=== PATIENT | female | born 1950 | race Hispanic/Latino ===

== ENCOUNTER 2021-08-30 07:30 | Observation (INO) | payer MEDICARE ==
[2021-08-25 15:45] LABS: BASOPHILS % (AUTO) 0.7 % (0.0-5.0); EOSINOPHILS % (AUTO) 1.2 % (0.0-8.0); HEMATOCRIT 42.9 % (36-48); LYMPHOCYTES % (AUTO) 25.2 % (21.0-51.0); MEAN CORPUSCULAR HEMOGLOBIN 30.9 pg (27.0-33.0); MEAN CORPUSCULAR HGB CONC 32.9 g/dL (32.0-36.0); MEAN CORPUSCULAR VOLUME 93.9 fL (79-99); MONOCYTES % (AUTO) 8.8 % (3.0-13.0); NEUTROPHILS % (AUTO) 63.6 % (40.0-77.0); PLATELET COUNT (AUTO) 253 K/uL (130-400); RED BLOOD CELL COUNT(AUTO) 4.57 MIL/uL (4.00-5.50); RED CELL DISTRIBUTION WIDTH 13.7 % (11.0-15.5); WHITE BLOOD COUNT (AUTO) 7.7 K/uL (4.8-10.8)
[2021-08-25 15:55] LABS: CREATININE 0.9 mg/dL (0.5-1.5); INR 1.05 (0.85-1.15); POTASSIUM 3.7 mmol/L (3.5-5.1); PROTHROMBIN TIME 11.4 SEC (9.6-11.6)
[2021-08-25 15:56] LABS: PARTIAL THROMBOPLASTIN TIME 26.6 SEC (26.3-35.5)
[2021-08-29 13:11] VITALS: BP 171/64
[2021-08-30] VITALS (26 sets, daily range): BP systolic 111–159; BP diastolic 50–77
[~2021-08-30] VITALS: Ht 152.4 cm; Wt 70.8 kg
[~2021-08-30 07:30] MED LIST: AZEL23SP2 NS; FISH1CAP63 PO; FLUT1BLS IH; FURO20TA4 PO; GABA300C PO; INSU300I SQ; IPRA21SP NS; LABE100T5 PO; LANS30CA55 PO; LEVO5TAB13 PO; LIRA0.6P SQ; MONT-39 PO; MULT-1258 PO; POTASSIUM PO; PRED10TA3 PO; QUIN1TAB16 PO; SIMV10TA97 PO; VITA100049 PO; VITAMIN D PO
[2021-08-30] MEDS ORDERED: 0.9%NACL 1000ML 1,000 ML IV ONE (07:50)
[2021-08-30] MEDS ORDERED: CEFAZOLIN SODIUM 1 GM VIAL IVP ONE (08:00)
[2021-08-30] MEDS ORDERED: LACTATED RINGERS 1000ML 1,000 ML IV SCH (08:00)
[2021-08-30] MEDS ORDERED: DEXTROSE 50%-WATER 50 ML DISP.SYRIN IV ONE (08:14)
[2021-08-30] MEDS ORDERED: ALBUTEROL IH (08:27)
[2021-08-30] MEDS: HYDROCHLOROTHIAZIDE PO SCH (09:00)
[2021-08-30] MEDS: LABETALOL HCL 100 MG TABLET PO SCH ×2 (09:00→20:38)
[2021-08-30] MEDS: INSULIN GLARGINE 100 UNITS/ML 10 ML VIAL SQ SCH (09:00)
[2021-08-30] MEDS: IPRATROPIUM BROMIDE IH SCH ×2 (09:00→20:37)
[2021-08-30] MEDS ORDERED: [UNRECOGNIZED DRUG - OTHER] NS SCH (09:00)
[2021-08-30] MEDS: FLUTICASONE/VILANTEROL 1 EACH BLST.W.DEV IH SCH (09:00)
[2021-08-30] MEDS: LIRAGLUTIDE 1.8 MG SQ SCH (09:00)
[2021-08-30] MEDS ORDERED: FLUTICASONE NS SCH (09:00)
[2021-08-30] MEDS: PREDNISONE 10 MG TABLET PO SCH (09:00)
[2021-08-30] MEDS ORDERED: AZELASTINE NS SCH (09:00)
[2021-08-30] MEDS: QUINAPRIL PO SCH (09:00)
[2021-08-30] MEDS ORDERED: MORPHINE 4 MG SYG IVP PRN (10:00)
[2021-08-30] MEDS ORDERED: ONDANSETRON 4MG INJ IVP PRN (10:00)
[2021-08-30] MEDS ORDERED: HYDROCODONE/ACETAMINOPHEN 10/325 MG TAB PO PRN (10:00)
[2021-08-30] MEDS ORDERED: HYDROCODONE/ACETAMINOPHEN 5/325 MG TAB PO PRN (10:00)
[2021-08-30] MEDS: ACETAMINOPHEN 500 MG TABLET PO SCH ×2 (10:00→20:35)
[2021-08-30] MEDS: 0.9%NACL 1000ML 1,000 ML IV SCH ×2 (10:00→20:00)
[2021-08-30] MEDS ORDERED: TRANEXAMIC ACID 1000MG/10ML ONE (10:19)
[2021-08-30] MEDS ORDERED: DEXAMETHASONE SOD PHOSPHATE 10MG/ML 1ML VIAL ONE (10:29)
[2021-08-30] MEDS ORDERED: SUCCINYLCHOLINE CHLORIDE 20 MG/ML 10 ML VIAL ONE (10:29)
[2021-08-30] MEDS ORDERED: ROCURONIUM 10MG/1ML SYR 10 MG/ML ML ONE (10:29)
[2021-08-30] MEDS ORDERED: PROPOFOL 10 MG/ML 20ML VIAL IV ONE (10:29)
[2021-08-30] MEDS ORDERED: LIDOCAINE PF 100MG/5ML (2%) SYRINGE 5ML ONE (10:29)
[2021-08-30] MEDS ORDERED: MIDAZOLAM HCL 1 MG/ML 2ML VIAL ONE (10:35)
[2021-08-30] MEDS ORDERED: DEXTROSE 50%-WATER 50 ML DISP.SYRIN IV SCH (11:30)
[2021-08-30] MEDS: INSULIN HUMULIN R 100 UNIT/ML 3ML SQ SCH ×3 (11:30→21:00)
[2021-08-30] MEDS: TRAMADOL HCL 50 MG TABLET PO SCH ×2 (12:00→20:35)
[2021-08-30] MEDS ORDERED: GLYCOPYRROLATE 1 MG/5 ML SYRINGE ONE (12:31)
[2021-08-30] MEDS ORDERED: ONDANSETRON 4MG INJ ONE (13:36)
[2021-08-30] MEDS ORDERED: KETOROLAC 30MG VIAL (30MG/ML) ONE (13:37)
[2021-08-30] MEDS ORDERED: FENTANYL CITRATE PF 50 MCG/1 ML 2ML VIAL ONE (13:38)
[2021-08-30] MEDS: CEFAZOLIN SODIUM 1 GM VIAL IVP SCH (15:08)
[2021-08-30] MEDS: FAMOTIDINE 20MG TAB PO SCH (20:33)
[2021-08-30] MEDS: ASPIRIN 81 MG EC TAB PO SCH (20:34)
[2021-08-30] MEDS: CELECOXIB 200 MG CAP PO SCH (20:34)
[2021-08-30] MEDS ORDERED: GABAPENTIN 300 MG CAPSULE PO SCH (21:00)
[2021-08-30] MEDS ORDERED: FUROSEMIDE 20 MG TABLET PO SCH (21:00)
[2021-08-30] MEDS ORDERED: MONTELUKAST SODIUM 10 MG TAB PO SCH (21:00)
[2021-08-31] MEDS ORDERED: CEFAZOLIN SODIUM 1 GM VIAL ONE (00:11)
[2021-08-31] MEDS: CEFAZOLIN SODIUM 1 GM VIAL IVP SCH (00:14)
[2021-08-31] MEDS: ACETAMINOPHEN 500 MG TABLET PO SCH ×2 (01:14→08:56)
[2021-08-31] MEDS: TRAMADOL HCL 50 MG TABLET PO SCH ×3 (01:14→11:52)
[2021-08-31] MEDS: 0.9%NACL 1000ML 1,000 ML IV SCH (01:18)
[2021-08-31 04:57] LABS: HEMATOCRIT 33.5 % (36-48); MEAN CORPUSCULAR HEMOGLOBIN 31.8 pg (27.0-33.0); MEAN CORPUSCULAR HGB CONC 32.8 g/dL (32.0-36.0); MEAN CORPUSCULAR VOLUME 96.8 fL (79-99); RED BLOOD CELL COUNT(AUTO) 3.46 MIL/uL (4.00-5.50); RED CELL DISTRIBUTION WIDTH 13.9 % (11.0-15.5); WHITE BLOOD COUNT (AUTO) 9.5 K/uL (4.8-10.8)
[2021-08-31 05:02] VITALS: BP 102/51
[2021-08-31 05:11] LABS: POTASSIUM 3.8 mmol/L (3.5-5.1)
[2021-08-31] MEDS: INSULIN HUMULIN R 100 UNIT/ML 3ML SQ SCH ×2 (06:33→11:30)
[2021-08-31 07:45] VITALS: BP 140/58
[2021-08-31] MEDS: INSULIN GLARGINE 100 UNITS/ML 10 ML VIAL SQ SCH (08:52)
[2021-08-31] MEDS: CELECOXIB 200 MG CAP PO SCH (08:54)
[2021-08-31] MEDS: ASPIRIN 81 MG EC TAB PO SCH (08:55)
[2021-08-31] MEDS: LABETALOL HCL 100 MG TABLET PO SCH (08:55)
[2021-08-31] MEDS: FAMOTIDINE 20MG TAB PO SCH (08:55)
[2021-08-31] MEDS: LIRAGLUTIDE 1.8 MG SQ SCH (09:00)
[2021-08-31] MEDS: QUINAPRIL PO SCH (09:00)
[2021-08-31] MEDS ORDERED: POLYETHYLENE GLYCOL 3350 17 GM POWD.PACK PO SCH (09:00)
[2021-08-31] MEDS: IPRATROPIUM BROMIDE IH SCH (09:00)
[2021-08-31] MEDS: HYDROCHLOROTHIAZIDE PO SCH (09:00)
[2021-08-31] MEDS: FLUTICASONE/VILANTEROL 1 EACH BLST.W.DEV IH SCH (09:00)
[2021-08-31] MEDS: PREDNISONE 10 MG TABLET PO SCH (09:33)
[2021-08-31 11:14] VITALS: BP 139/49
[2021-09-02] MEDS ORDERED: BISACODYL 10 MG SUPP.RECT RC PRN (10:00)
== END 2021-08-31 16:00 | disposition home or self-care (01) ==
LOC: DAH 07:30 → DAHIP 07:31 → 3AH 15:44
PROVIDERS: ADMIT Orthopaedic Surgery; ATTEND Orthopaedic Surgery
DX: M17.12 Unilateral primary osteoarthritis, left knee (principal); Z20.822 Contact with and (suspected) exposure to COVID-19; E11.9 Type 2 diabetes mellitus without complications; I10 Essential (primary) hypertension; J45.909 Unspecified asthma, uncomplicated; K21.9 Gastro-esophageal reflux disease without esophagitis; E66.9 Obesity, unspecified; Z79.899 Other long term (current) drug therapy; Z98.890 Other specified postprocedural states
CPT/HCPCS: 27447; 36415 ×2; 64445; 76942; 80048 ×2; 82948 ×10; 85025; 85027; 85610; 85730; 87635; 87641; 93005; 93926; 96372; 96374; 96375; 96376; 97039 ×2; 97116 ×2; 97161; 97530 ×2; A4215; A4221; A4222; A4223; A4649 ×4; A4663; A5120; A6219; A6223; A6260; C1776; C9803; G0378 ×25; J0330; J0690 ×3; J1100; J1815; J1885; J2001; J2250; J2405; J2704; J3010; J3490 ×2; J7030 ×3; J7040; J7070; J7512

== ENCOUNTER 2022-03-21 06:05 | Observation (INO) | payer MEDICARE ==
[2022-03-15 11:54] LABS: BASOPHILS % (AUTO) 0.7 % (0.0-5.0); EOSINOPHILS % (AUTO) 2.7 % (0.0-8.0); HEMATOCRIT 41.8 % (36-48); MEAN CORPUSCULAR HEMOGLOBIN 31.8 pg (27.0-33.0); MEAN CORPUSCULAR VOLUME 93.5 fL (79-99); MONOCYTES % (AUTO) 9.9 % (3.0-13.0); NEUTROPHILS % (AUTO) 61.9 % (40.0-77.0); PLATELET COUNT (AUTO) 251 K/uL (130-400); RED BLOOD CELL COUNT(AUTO) 4.47 MIL/uL (4.00-5.50); RED CELL DISTRIBUTION WIDTH 13.4 % (11.0-15.5); WHITE BLOOD COUNT (AUTO) 7.5 K/uL (4.8-10.8)
[2022-03-15 12:33] LABS: CREATININE 0.9 mg/dL (0.5-1.5); POTASSIUM 3.8 mmol/L (3.5-5.1)
[2022-03-20 09:41] VITALS: BP 118/69
[2022-03-21] VITALS (27 sets, daily range): BP systolic 96–154; BP diastolic 38–87
[~2022-03-21] VITALS: Ht 151.1 cm; Wt 71.1 kg
[2022-03-21] MEDS: CEFAZOLIN SODIUM 1 GM VIAL IVP SCH ×4 (05:00→20:09)
[~2022-03-21 06:05] MED LIST changes: -GABA300C PO; -LABE100T5 PO; +LABE100T7 PO; -MULT-1258 PO
[2022-03-21] MEDS ORDERED: 0.9%NACL 1000ML 1,000 ML IV ONE (06:25)
[2022-03-21] MEDS ORDERED: DEXTROSE 50%-WATER 50 ML DISP.SYRIN IV ONE (06:45)
[2022-03-21] MEDS ORDERED: KETOROLAC 15MG/ML VIAL (15MG/ML) IV PRN (08:30)
[2022-03-21] MEDS ORDERED: ONDANSETRON 4MG INJ IVP PRN (08:30)
[2022-03-21] MEDS ORDERED: MORPHINE 4 MG SYG IVP PRN (08:30)
[2022-03-21] MEDS ORDERED: LIDOCAINE HCL-MPF 1% 2ML VIAL IV PRN (08:30)
[2022-03-21] MEDS ORDERED: KCL 20 MEQ ERTAB PO PRN (08:30)
[2022-03-21] MEDS ORDERED: POTASSIUM CHLORIDE 10% ELIXIR 20 MEQ/15 ML UDCUP PO PRN (08:30)
[2022-03-21] MEDS ORDERED: POTASSIUM CHLORIDE 20MEQ/100ML 100 ML IV PRN (08:30)
[2022-03-21] MEDS: ACETAMINOPHEN 500 MG TABLET PO SCH ×3 (08:30→23:46)
[2022-03-21] MEDS ORDERED: HYDROCODONE/ACETAMINOPHEN 5/325 MG TAB PO PRN (08:30)
[2022-03-21] MEDS: 0.9%NACL 1000ML 1,000 ML IV SCH ×2 (08:30→13:51)
[2022-03-21] MEDS ORDERED: TRANEXAMIC ACID 1000MG/10ML ONE (08:42)
[2022-03-21] MEDS: PREDNISONE 10 MG TABLET PO SCH ×3 (09:00→20:08)
[2022-03-21] MEDS: PAK SQ SCH (09:00)
[2022-03-21] MEDS: ASPIRIN 81 MG EC TAB PO SCH ×3 (09:00→20:08)
[2022-03-21] MEDS: VICTOZA SQ SCH (09:00)
[2022-03-21] MEDS: LISINOPRIL 20 MG TABLET PO SCH ×2 (09:00→13:50)
[2022-03-21] MEDS: INSULIN GLARGINE 100 UNITS/ML 10 ML VIAL SQ SCH (09:00)
[2022-03-21] MEDS: LABETALOL HCL 100 MG TABLET PO SCH ×3 (09:00→20:09)
[2022-03-21] MEDS: HYDROCHLOROTHIAZIDE 25 MG TABLET PO SCH ×2 (09:00→13:50)
[2022-03-21] MEDS: INSULIN HUMULIN R 100 UNIT/ML 3ML SQ SCH ×3 (11:30→20:09)
[2022-03-21 11:45] LABS: APPEARANCE BODY FLUID TURBID (CLEAR); COLOR,BODY FLUID RED (LT YELLOW); SPECIMENTYPE,BODY FLUID SYNOVIAL; TOTAL VOLUME,BODY FLUID 10 mL
[2022-03-21 11:46] LABS: BODY FLUID RBC 75500 /cu. mm.; BODY FLUID WBC 600 /cu. mm.
[2022-03-21 11:51] LABS: BF LYMPHOCYTE 47 %; BF MESOTHELIAL 29 %; BF MONOCYTE 6 %
[2022-03-21] MEDS: TRAMADOL HCL 50 MG TABLET PO SCH ×3 (12:00→23:45)
[2022-03-21] MEDS: POLYETHYLENE GLYCOL 3350 17 GM POWD.PACK PO SCH (13:49)
[2022-03-21] MEDS: PANTOPRAZOLE 40 MG TAB DR PO SCH (13:51)
[2022-03-21] MEDS: IPRATROPIUM 0.5 MG/2.5 ML INH IH SCH (18:37)
[2022-03-21] MEDS: FUROSEMIDE 20 MG TABLET PO SCH (20:08)
[2022-03-21] MEDS: MONTELUKAST SODIUM 10 MG TAB PO SCH (20:08)
[2022-03-21] MEDS: CETIRIZINE HCL 5 MG TABLET PO SCH (20:09)
[2022-03-22] VITALS (7 sets, daily range): BP systolic 96–143; BP diastolic 56–110
[2022-03-22 03:48] LABS: HEMATOCRIT 37.9 % (36-48); MEAN CORPUSCULAR HEMOGLOBIN 31.7 pg (27.0-33.0); MEAN CORPUSCULAR VOLUME 93.1 fL (79-99); RED BLOOD CELL COUNT(AUTO) 4.07 MIL/uL (4.00-5.50); RED CELL DISTRIBUTION WIDTH 13.3 % (11.0-15.5); WHITE BLOOD COUNT (AUTO) 11.2 K/uL (4.8-10.8)
[2022-03-22 03:58] LABS: POTASSIUM 3.9 mmol/L (3.5-5.1)
[2022-03-22] MEDS: CEFAZOLIN SODIUM 1 GM VIAL IVP SCH (04:05)
[2022-03-22] MEDS: 0.9%NACL 1000ML 1,000 ML IV SCH (04:05)
[2022-03-22] MEDS: TRAMADOL HCL 50 MG TABLET PO SCH ×3 (05:39→18:38)
[2022-03-22] MEDS: INSULIN HUMULIN R 100 UNIT/ML 3ML SQ SCH ×4 (06:01→21:00)
[2022-03-22] MEDS: IPRATROPIUM 0.5 MG/2.5 ML INH IH SCH ×2 (06:50→18:30)
[2022-03-22] MEDS: POLYETHYLENE GLYCOL 3350 17 GM POWD.PACK PO SCH (07:47)
[2022-03-22] MEDS: PANTOPRAZOLE 40 MG TAB DR PO SCH (07:47)
[2022-03-22] MEDS: HYDROCHLOROTHIAZIDE 25 MG TABLET PO SCH (07:47)
[2022-03-22] MEDS: ASPIRIN 81 MG EC TAB PO SCH ×2 (07:47→20:23)
[2022-03-22] MEDS: LISINOPRIL 20 MG TABLET PO SCH (07:48)
[2022-03-22] MEDS: HYDROCODONE/ACETAMINOPHEN 10/325 MG TAB PO PRN (07:48)
[2022-03-22] MEDS: LABETALOL HCL 100 MG TABLET PO SCH ×2 (07:48→20:23)
[2022-03-22] MEDS: ACETAMINOPHEN 500 MG TABLET PO SCH ×2 (07:49→16:49)
[2022-03-22] MEDS: PREDNISONE 10 MG TABLET PO SCH ×2 (07:49→20:23)
[2022-03-22] MEDS: INSULIN GLARGINE 100 UNITS/ML 10 ML VIAL SQ SCH (07:51)
[2022-03-22] MEDS: PAK SQ SCH (07:52)
[2022-03-22] MEDS: VICTOZA SQ SCH (07:52)
[2022-03-22] MEDS: CETIRIZINE HCL 5 MG TABLET PO SCH (20:23)
[2022-03-22] MEDS: MONTELUKAST SODIUM 10 MG TAB PO SCH (20:23)
[2022-03-22] MEDS: FUROSEMIDE 20 MG TABLET PO SCH (20:23)
[2022-03-23 00:08] VITALS: BP 96/50
[2022-03-23] MEDS: ACETAMINOPHEN 500 MG TABLET PO SCH ×2 (00:28→06:00)
[2022-03-23 03:51] VITALS: BP 107/55
[2022-03-23] MEDS: TRAMADOL HCL 50 MG TABLET PO SCH ×3 (05:58→11:51)
[2022-03-23] MEDS: INSULIN HUMULIN R 100 UNIT/ML 3ML SQ SCH ×2 (06:01→11:53)
[2022-03-23] MEDS: IPRATROPIUM 0.5 MG/2.5 ML INH IH SCH (06:27)
[2022-03-23 08:12] VITALS: BP 123/63
[2022-03-23] MEDS: POLYETHYLENE GLYCOL 3350 17 GM POWD.PACK PO SCH (08:23)
[2022-03-23] MEDS: HYDROCHLOROTHIAZIDE 25 MG TABLET PO SCH (08:24)
[2022-03-23] MEDS: LISINOPRIL 20 MG TABLET PO SCH (08:24)
[2022-03-23] MEDS: PREDNISONE 10 MG TABLET PO SCH (08:24)
[2022-03-23] MEDS: PANTOPRAZOLE 40 MG TAB DR PO SCH (08:24)
[2022-03-23] MEDS: LABETALOL HCL 100 MG TABLET PO SCH (08:24)
[2022-03-23] MEDS: ASPIRIN 81 MG EC TAB PO SCH (08:24)
[2022-03-23] MEDS: HYDROCODONE/ACETAMINOPHEN 10/325 MG TAB PO PRN (08:29)
[2022-03-23] MEDS: VICTOZA SQ SCH (09:00)
[2022-03-23] MEDS: PAK SQ SCH (09:00)
[2022-03-23 11:22] VITALS: BP 87/37
[2022-03-23 11:30] VITALS: BP 127/45
[2022-03-23] MEDS: INSULIN GLARGINE 100 UNITS/ML 10 ML VIAL SQ SCH (11:54)
[2022-03-24] MEDS ORDERED: BISACODYL 10 MG SUPP.RECT RC PRN (08:30)
== END 2022-03-23 16:30 | disposition home or self-care (01) ==
LOC: DAH 06:05 → DAHIP 06:06 → 4BH 10:58
PROVIDERS: ADMIT Orthopaedic Surgery; ATTEND Orthopaedic Surgery
DX: M24.662 Ankylosis, left knee (principal); Z20.822 Contact with and (suspected) exposure to COVID-19; M25.562 Pain in left knee; E11.9 Type 2 diabetes mellitus without complications; Z79.4 Long term (current) use of insulin; Z79.899 Other long term (current) drug therapy; Z79.82 Long term (current) use of aspirin; Z98.890 Other specified postprocedural states
CPT/HCPCS: 80048 ×2; 85025; 87426; 36415 ×2; 93005; 27310; 96374; 96376; 96375; 76942; 64447; 89051; 87071; 87076; 87205; 82948 ×14; 97161; 97530 ×3; 94640 ×4; 94664; 85027; 97039 ×5; 97116 ×3; A6260; G0378 ×50; A4663; J7040; J7030 ×2; J0690 ×3; J3490; J7070; J2405; J7512 ×5; A4649 ×3; A4930; C1776; A6255; A4215; A4223; A4222; A4221; J1815